=== PATIENT | male | born 1960 | race Caucasian/White ===

== ENCOUNTER 2019-05-14 20:01 | Inpatient (IN) | payer MEDICARE, OTHER, MEDICAID ==
[2019-05-14 20:49] LABS: WHITE BLOOD COUNT 14.4 10^3/ul (4.8-10.8)
[2019-05-14 20:49] LABS: ABNORMAL IP MESSAGE 1; HEMATOCRIT 17.1 % (42.0-52.0); MEAN CORPUSCULAR HEMOGLOBIN 28.9 pg (29.0-33.0); MEAN CORPUSCULAR HGB CONC 32.7 g/dl (32.0-37.0); MEAN CORPUSCULAR VOLUME 88.1 fl (82.0-101.0); MEAN PLATELET VOLUME 8.9 fl (7.4-10.4); PLATELET COUNT 221 10^3/UL (140-415); POSITIVE DIFF @See below; RED BLOOD COUNT 1.94 10^6/ul (4.70-6.10); RED CELL DISTRIBUTION WIDTH 16.6 % (11.5-14.5)
[2019-05-14 20:54] LABS: ADD MAN DIFF? YES; HEMOGLOBIN 5.6 g/dl (14.0-18.0)
[2019-05-14 21:03] LABS: ALANINE AMINOTRANSFERASE 31 IU/L (13-69); ALBUMIN 2.1 g/dl (3.3-4.9); ALKALINE PHOSPHATASE 52 IU/L (42-121); ANION GAP 5 (5-13); ASPARTATE AMINO TRANSFERASE 19 IU/L (15-46); BILIRUBIN,INDIRECT 0.2 mg/dl (0-1.1); BILIRUBIN,TOTAL 0.2 mg/dl (0.2-1.3); BLOOD UREA NITROGEN 55 mg/dl (7-20); CALCIUM 6.7 mg/dl (8.4-10.2); CARBON DIOXIDE 22 mmol/L (21-31); CHLORIDE 110 mmol/L (97-110); CREATININE 2.04 mg/dl (0.61-1.24); Estimated GFR 34 mL/min (>60); GLUCOSE 153 mg/dl (70-220); POTASSIUM 5.5 mmol/L (3.5-5.1); SODIUM 137 mmol/L (135-144)
[2019-05-14 21:15] LABS: B-TYPE NATRIURETIC PEPTIDE 3220 PG/ML (0-125); TROPONIN-I 0.037 ng/ml (0.000-0.120)
[2019-05-14 21:19] LABS: ANISOCYTOSIS 2+ (0-0); BAND NEUTROPHILS #M 0.4 10^3/ul (0.0-0.6); BAND NEUTROPHILS % (M) 3 % (0-4); LYMPHOCYTES % (M) 14 % (15-51); MICROCYTOSIS 2+ (0-0); MONOCYTE #M 0.5 10^3/ul (0.3-0.9); MONOCYTES % (M) 4 % (0-11); PLATELET ESTIMATE NORMAL; SEG NEUT #M 11.4 10^3/ul (1.6-7.5); SEGMENTED NEUTROPHILS (M) % 79 % (39-77); SMUDGE%M 3 % (0-0)
[2019-05-14] MEDS: ONDANSETRON 4 MG INJ IV (22:07)
[2019-05-14] MEDS ORDERED: ONDANSETRON 4 MG TAB PO (22:30)
[2019-05-14] MEDS ORDERED: HYDROCODONE/APAP (5/325) TAB PO (22:30)
[2019-05-14] MEDS ORDERED: BISACODYL (EC) 5 MG TAB PO (22:30)
[2019-05-14] MEDS ORDERED: DOCUSATE SODIUM 100 MG CAP PO (22:30)
[2019-05-14] MEDS ORDERED: hydrALAzine 20 MG INJ IV (22:30)
[2019-05-14] MEDS ORDERED: NACL 0.9% 3 ML SYG IV (22:30)
[2019-05-14] MEDS: FUROSEMIDE 40 MG INJ IV (22:52)
[2019-05-14] MEDS: ALBUTEROL 0.083% (NEB) 2.5 MG/3 ML AMP HHN (23:35)
[2019-05-14] MEDS: INSULIN REGULAR, HUMAN 100 UNIT/1 ML 3ML VIAL IVP (23:38)
[2019-05-14] MEDS: DEXTROSE 50% 50 ML SYRINGE IV (23:38)
[2019-05-14] MEDS: SODIUM POLYSTYRENE 15 GM KIT (POWDER + SORBITOL) PO (23:39)
[2019-05-15 04:30] LABS: SODIUM,URINE RANDOM 26 mmol/L (30-90)
[2019-05-15 04:30] LABS: ADD UMIC YES; UR ASCORBIC ACID NEGATIVE (NEGATIVE); UR BACTERIA FEW /HPF (NONE SEEN); UR BILIRUBIN (Dip) NEGATIVE (NEGATIVE); UR BLOOD (Dip) 1+ mg/dL (NEGATIVE); UR CLARITY CLOUDY (CLEAR); UR COLOR YELLOW (YELLOW); UR GLUCOSE (Dip) 1+ mg/dL (NEGATIVE); UR KETONES (Dip) NEGATIVE (NEGATIVE); UR LEUKOCYTE ESTERASE (Dip) NEGATIVE Leu/ul (NEGATIVE); UR MUCUS FEW /HPF (NONE SEEN); UR NITRITE (Dip) NEGATIVE (NEGATIVE); UR RBC 9 /HPF (0-5); UR SPECIFIC GRAVITY (Dip) 1.013 (1.003-1.030); UR SQUAMOUS EPITHELIAL CELL FEW /HPF (FEW); UR TOTAL PROTEIN (Dip) 2+ mg/dl (NEGATIVE); UR TRANSITIONAL EPI CELL FEW /HPF (NONE SEEN); UR UROBILINOGEN (Dip) NEGATIVE (NEGATIVE); UR WBC 3 /HPF (0-5)
[2019-05-15 04:39] LABS: CREATININE,URINE RANDOM 96.11 mg/dl (20-370)
[2019-05-15] MEDS: INSULIN ASPART [NOVOLOG] 3 ML PEN SC ×5 (05:28→20:27)
[2019-05-15] MEDS: ALBUMIN HUMAN 25% 100 ML IV ×3 (05:29→19:33)
[2019-05-15] MEDS: FAMOTIDINE IV 40 MG in SOD CHLORIDE 0.9% 250 ML IV (05:39)
[2019-05-15] MEDS: OCTREOTIDE 1 MG in DEXTROSE 5% 95 ML IV (05:39)
[2019-05-15 08:44] LABS: HAAIG REFLEX REFLEX FILED
[2019-05-15 08:48] LABS: ABNORMAL IP MESSAGE 1; ADD MAN DIFF? NO; BASOPHILS % 0.1 % (0.0-2.0); EOSINOPHILS # 0.1 10^3/ul (0.0-0.5); EOSINOPHILS % 0.3 % (0.0-7.0); HEMATOCRIT 19.1 % (42.0-52.0); LYMPHOCYTES % 26.3 % (15.0-51.0); MEAN PLATELET VOLUME 9.5 fl (7.4-10.4); MONOCYTE # 1.9 10^3/ul (0.3-0.9); MONOCYTES % 10.1 % (0.0-11.0); NEUTROPHIL # 11.6 10^3/ul (1.6-7.5); NEUTROPHILS % 60.9 % (39.0-77.0); NUCLEATED RED BLOOD CELLS% 0.2 /100WBC (0.0-0.0); PLATELET COUNT 164 10^3/UL (140-415); POSITIVE DIFF @See below; RED BLOOD COUNT 2.17 10^6/ul (4.70-6.10); RED CELL DISTRIBUTION WIDTH 16.1 % (11.5-14.5)
[2019-05-15 08:55] LABS: HEMOGLOBIN 6.3 g/dl (14.0-18.0)
[2019-05-15 09:09] LABS: HEMOGLOBIN A1C 5.7 % (0-5.9)
[2019-05-15 09:10] LABS: IRON 129 ug/dl (35-150)
[2019-05-15 09:12] LABS: ANION GAP 9 (5-13); BLOOD UREA NITROGEN 65 mg/dl (7-20); CALCIUM 6.3 mg/dl (8.4-10.2); CARBON DIOXIDE 21 mmol/L (21-31); CHLORIDE 110 mmol/L (97-110); CHOL/HDL RATIO 5.1 RATIO; CHOLESTEROL 174 mg/dl (100-200); CREATININE 2.51 mg/dl (0.61-1.24); Estimated GFR 27 mL/min (>60); GLUCOSE 93 mg/dl (70-220); HDL CHOLESTEROL 34 mg/dl (28-71); LDL CHOLESTEROL,CALCULATED 72 mg/dl; PHOSPHORUS 5.9 mg/dl (2.5-4.9); POTASSIUM 5.9 mmol/L (3.5-5.1); SODIUM 140 mmol/L (135-144); TRIGLYCERIDES 338 mg/dl (0-149)
[2019-05-15 09:12] LABS: MAGNESIUM 2.1 mg/dl (1.7-2.5)
[2019-05-15 09:13] LABS: INR 1.32; PROTIME 16.5 Sec (11.9-14.9); PT RATIO 1.3
[2019-05-15 09:14] LABS: PARTIAL THROMBOPLASTIN TIME 27.1 Sec (23.0-35.0)
[2019-05-15 09:20] LABS: % IRON SATURATION 77 % SAT (22-52); TOTAL IRON BINDING CAPACITY 168 ug/dl (241-421)
[2019-05-15] MEDS: LIDOCAINE 1% (MPF) 5 ML VIAL SC (10:30)
[2019-05-15] MEDS: METOLAZONE 5 MG TAB PO (10:36)
[2019-05-15] MEDS: ALBUTEROL 0.083% (NEB) 2.5 MG/3 ML AMP HHN (10:58)
[2019-05-15] MEDS: INSULIN REGULAR, HUMAN 100 UNIT/1 ML 3ML VIAL IVP (11:28)
[2019-05-15] MEDS: DEXTROSE 50% 50 ML SYRINGE IV (11:36)
[2019-05-15 11:42] LABS: COMPLEMENT C3 61 mg/dl (88-165); COMPLEMENT C4 23 mg/dl (14-44); HEPATITIS B CORE ANTIBODY NEGATIVE (NEGATIVE); HEPATITIS B SURFACE ANTIGEN NEGATIVE (NEGATIVE); HEPATITIS C VIRAL ANTIBODY NEGATIVE (NEGATIVE)
[2019-05-15 11:56] LABS: ADD UMIC YES; UR AMORPHOUS CRYSTAL FEW /HPF (NONE SEEN); UR ASCORBIC ACID NEGATIVE (NEGATIVE); UR BACTERIA FEW /HPF (NONE SEEN); UR BILIRUBIN (Dip) NEGATIVE (NEGATIVE); UR BLOOD (Dip) 1+ mg/dL (NEGATIVE); UR CLARITY CLOUDY (CLEAR); UR COLOR YELLOW (YELLOW); UR GLUCOSE (Dip) NEGATIVE (NEGATIVE); UR KETONES (Dip) NEGATIVE (NEGATIVE); UR LEUKOCYTE ESTERASE (Dip) TRACE Leu/ul (NEGATIVE); UR MUCUS FEW /HPF (NONE SEEN); UR NITRITE (Dip) NEGATIVE (NEGATIVE); UR RBC 4 /HPF (0-5); UR SPECIFIC GRAVITY (Dip) 1.014 (1.003-1.030); UR SQUAMOUS EPITHELIAL CELL FEW /HPF (FEW); UR TOTAL PROTEIN (Dip) 2+ mg/dl (NEGATIVE); UR UROBILINOGEN (Dip) NEGATIVE (NEGATIVE); UR WBC 11 /HPF (0-5)
[2019-05-15 12:14] LABS: CREATININE,URINE RANDOM 154.52 mg/dl (20-370)
[2019-05-15 12:24] LABS: SODIUM,URINE RANDOM < 13 mmol/L (30-90)
[2019-05-15 12:41] LABS: HEPATITIS B SURFACE ANTIBODY NEGATIVE (NEGATIVE)
[2019-05-15] MEDS: BUMETANIDE 6 MG in DEXTROSE 5% 36 ML IV (13:05)
[2019-05-15] MEDS: METOPROLOL 5 MG INJ IV ×2 (13:14→21:43)
[2019-05-15 14:39] LABS: ADD MAN DIFF? NO
[2019-05-15 14:41] LABS: BASOPHILS % 0.1 % (0.0-2.0); EOSINOPHILS # 0.1 10^3/ul (0.0-0.5); EOSINOPHILS % 0.5 % (0.0-7.0); HEMATOCRIT 23.7 % (42.0-52.0); HEMOGLOBIN 8.1 g/dl (14.0-18.0); LYMPHOCYTES # 4.5 10^3/ul (0.8-2.9); LYMPHOCYTES % 27.9 % (15.0-51.0); MEAN CORPUSCULAR HEMOGLOBIN 29.8 pg (29.0-33.0); MEAN CORPUSCULAR HGB CONC 34.2 g/dl (32.0-37.0); MEAN CORPUSCULAR VOLUME 87.1 fl (82.0-101.0); MEAN PLATELET VOLUME 10.5 fl (7.4-10.4); MONOCYTE # 1.3 10^3/ul (0.3-0.9); MONOCYTES % 8.2 % (0.0-11.0); NEUTROPHIL # 9.8 10^3/ul (1.6-7.5); NEUTROPHILS % 61.2 % (39.0-77.0); NUCLEATED RED BLOOD CELLS% 0.2 /100WBC (0.0-0.0); PLATELET COUNT 116 10^3/UL (140-415); RED BLOOD COUNT 2.72 10^6/ul (4.70-6.10); RED CELL DISTRIBUTION WIDTH 16.3 % (11.5-14.5)
[2019-05-15 14:58] LABS: ANION GAP 7 (5-13); BLOOD UREA NITROGEN 68 mg/dl (7-20); CALCIUM 6.6 mg/dl (8.4-10.2); CARBON DIOXIDE 22 mmol/L (21-31); CHLORIDE 109 mmol/L (97-110); CREATININE 2.64 mg/dl (0.61-1.24); Estimated GFR 25 mL/min (>60); GLUCOSE 86 mg/dl (70-220); POTASSIUM 5.8 mmol/L (3.5-5.1); SODIUM 138 mmol/L (135-144)
[2019-05-15 15:18] LABS: RHEUMATOID FACTOR NEGATIVE (NEGATIVE)
[2019-05-15 17:39] LABS: POTASSIUM 5.2 mmol/L (3.5-5.1)
[2019-05-15] MEDS: BUMETANIDE 25 MG in DEXTROSE 5% 150 ML IV (18:20)
[2019-05-15 19:16] LABS: PARATHYROID HORMONE 538.6 pg/ml (24.0-73.0)
[2019-05-15] MEDS: hydrALAzine 20 MG INJ IV ×2 (19:56→22:38)
[2019-05-15] MEDS: ATORVASTATIN 40 MG TAB PO (20:35)
[2019-05-15] MEDS: NITROGLYCERIN (SL) 0.4 MG TAB SL (20:46)
[2019-05-15] MEDS: ONDANSETRON 4 MG INJ IV (20:56)
[2019-05-15 21:27] LABS: CREATINE KINASE 54 IU/L (23-200)
[2019-05-15 21:40] LABS: CK INDEX 4.5; TROPONIN-I 0.077 ng/ml (0.000-0.120)
[2019-05-15 21:47] LABS: CK-MB 2.42 ng/ml (0.0-2.4)
[2019-05-15] MEDS ORDERED: hydrALAzine 20 MG INJ IV (23:00)
[2019-05-15 23:24] LABS: HEMATOCRIT 22.5 % (42.0-52.0); HEMOGLOBIN 7.6 g/dl (14.0-18.0)
[2019-05-16] MEDS: OCTREOTIDE 1 MG in DEXTROSE 5% 95 ML IV ×2 (00:16→17:14)
[2019-05-16] MEDS: INSULIN ASPART [NOVOLOG] 3 ML PEN SC ×6 (00:29→21:00)
[2019-05-16] MEDS ORDERED: ACCU-CHEK XX (02:00)
[2019-05-16] MEDS: PANTOPRAZOLE IV 80 MG in SOD CHLORIDE 0.9% 100 ML IVPB ×3 (03:06→22:55)
[2019-05-16 03:50] LABS: TROPONIN-I 0.316 ng/ml (0.000-0.120)
[2019-05-16 04:18] LABS: CK-MB 3.55 ng/ml (0.0-2.4)
[2019-05-16 04:57] LABS: PROTEIN, TOTAL 3.8 g/dL (6.1-8.1)
[2019-05-16 05:49] LABS: ADD MAN DIFF? NO
[2019-05-16 05:56] LABS: BASOPHILS % 0.1 % (0.0-2.0); EOSINOPHILS # 0.1 10^3/ul (0.0-0.5); EOSINOPHILS % 0.8 % (0.0-7.0); HEMATOCRIT 24.1 % (42.0-52.0); HEMOGLOBIN 8.1 g/dl (14.0-18.0); LYMPHOCYTES # 1.6 10^3/ul (0.8-2.9); LYMPHOCYTES % 12.1 % (15.0-51.0); MEAN CORPUSCULAR HEMOGLOBIN 29.7 pg (29.0-33.0); MEAN CORPUSCULAR HGB CONC 33.6 g/dl (32.0-37.0); MEAN CORPUSCULAR VOLUME 88.3 fl (82.0-101.0); MEAN PLATELET VOLUME 9.5 fl (7.4-10.4); MONOCYTE # 1.1 10^3/ul (0.3-0.9); NEUTROPHIL # 10.4 10^3/ul (1.6-7.5); NEUTROPHILS % 77.9 % (39.0-77.0); PLATELET COUNT 100 10^3/UL (140-415); RED BLOOD COUNT 2.73 10^6/ul (4.70-6.10); RED CELL DISTRIBUTION WIDTH 16.2 % (11.5-14.5)
[2019-05-16 05:56] LABS: WHITE BLOOD COUNT 13.3 10^3/ul (4.8-10.8)
[2019-05-16 06:16] LABS: ANION GAP 8 (5-13); BLOOD UREA NITROGEN 67 mg/dl (7-20); CALCIUM 7.4 mg/dl (8.4-10.2); CARBON DIOXIDE 26 mmol/L (21-31); CHLORIDE 105 mmol/L (97-110); CREATININE 2.72 mg/dl (0.61-1.24); Estimated GFR 24 mL/min (>60); GLUCOSE 107 mg/dl (70-220); POTASSIUM 4.8 mmol/L (3.5-5.1); SODIUM 139 mmol/L (135-144)
[2019-05-16 09:09] LABS: CREATINE KINASE 102 IU/L (23-200)
[2019-05-16 09:22] LABS: CK INDEX 11.5
[2019-05-16] MEDS: BUMETANIDE 6 MG in DEXTROSE 5% 36 ML IV (09:34)
[2019-05-16] MEDS: hydrALAzine 20 MG INJ IV (11:05)
[2019-05-16] MEDS: METOLAZONE 5 MG TAB PO (11:11)
[2019-05-16] MEDS: ACETAMINOPHEN 325 MG TAB PO (12:47)
[2019-05-16 12:52] LABS: ANA SCREEN NEGATIVE (NEGATIVE)
[2019-05-16] MEDS: METOPROLOL 5 MG INJ IV ×3 (12:57→21:28)
[2019-05-16 13:37] LABS: ANCA SCREEN NEGATIVE (NEGATIVE)
[2019-05-16 14:32] LABS: ANION GAP 4 (5-13); BLOOD UREA NITROGEN 67 mg/dl (7-20); CALCIUM 7.6 mg/dl (8.4-10.2); CARBON DIOXIDE 29 mmol/L (21-31); CHLORIDE 104 mmol/L (97-110); CREATININE 2.81 mg/dl (0.61-1.24); Estimated GFR 23 mL/min (>60); GLUCOSE 132 mg/dl (70-220); POTASSIUM 4.3 mmol/L (3.5-5.1); SODIUM 137 mmol/L (135-144)
[2019-05-16 15:11] LABS: MYELOPEROXIDASE ANTIBODY <1.0 AI; PROTEINASE-3 ANTIBODY <1.0 AI
[2019-05-16 15:18] LABS: ADD MAN DIFF? NO
[2019-05-16 15:19] LABS: ABNORMAL IP MESSAGE 1; BASOPHILS % 0.2 % (0.0-2.0); EOSINOPHILS # 0.1 10^3/ul (0.0-0.5); EOSINOPHILS % 0.6 % (0.0-7.0); HEMATOCRIT 23.2 % (42.0-52.0); HEMOGLOBIN 7.8 g/dl (14.0-18.0); LYMPHOCYTES # 1.2 10^3/ul (0.8-2.9); LYMPHOCYTES % 9.5 % (15.0-51.0); MEAN CORPUSCULAR HGB CONC 33.6 g/dl (32.0-37.0); MEAN CORPUSCULAR VOLUME 89.2 fl (82.0-101.0); MEAN PLATELET VOLUME 9.2 fl (7.4-10.4); MONOCYTE # 1.1 10^3/ul (0.3-0.9); MONOCYTES % 8.8 % (0.0-11.0); NEUTROPHIL # 9.9 10^3/ul (1.6-7.5); NEUTROPHILS % 79.9 % (39.0-77.0); PLATELET COUNT 93 10^3/UL (140-415); POSITIVE DIFF @See below; RED CELL DISTRIBUTION WIDTH 16.2 % (11.5-14.5)
[2019-05-16 15:19] LABS: WHITE BLOOD COUNT 12.4 10^3/ul (4.8-10.8)
[2019-05-16 15:34] LABS: IMMEDIATE SPIN CROSSMATCH 1 6
[2019-05-16 15:39] LABS: CREATINE KINASE 84 IU/L (23-200)
[2019-05-16 15:52] LABS: CK INDEX 10.6
[2019-05-16 15:55] LABS: CK-MB 8.92 ng/ml (0.0-2.4)
[2019-05-16 16:02] LABS: CREATININE, RANDOM URINE 154 mg/dL (20-320); MICROALBUMIN 97.6 mg/dL; MICROALBUMIN/CREATININE RATIO 634 (<30)
[2019-05-16 16:46] LABS: ALBUMIN 2.6 g/dL (3.8-4.8); ALPHA-1-GLOBULINS 0.3 g/dL (0.2-0.3); ALPHA-2-GLOBULINS 0.6 g/dL (0.5-0.9); BETA 2 GLOBULINS 0.1 g/dL (0.2-0.5); BETA GLOBULINS 0.2 g/dL (0.4-0.6); GAMMA GLOBULINS 0.1 g/dL (0.8-1.7)
[2019-05-16] MEDS: BUMETANIDE 25 MG in DEXTROSE 5% 150 ML IV (18:01)
[2019-05-16] MEDS: ATORVASTATIN 40 MG TAB PO (21:28)
[2019-05-16 21:31] LABS: HEMATOCRIT 26.5 % (42.0-52.0)
[2019-05-17] MEDS: INSULIN ASPART [NOVOLOG] 3 ML PEN SC ×6 (01:00→22:14)
[2019-05-17] MEDS: METOPROLOL 5 MG INJ IV ×3 (01:24→09:00)
[2019-05-17 05:59] LABS: ADD MAN DIFF? NO
[2019-05-17 06:05] LABS: WHITE BLOOD COUNT 11.6 10^3/ul (4.8-10.8)
[2019-05-17 06:05] LABS: ABNORMAL IP MESSAGE 1; BASOPHILS % 0.1 % (0.0-2.0); EOSINOPHILS # 0.1 10^3/ul (0.0-0.5); EOSINOPHILS % 0.9 % (0.0-7.0); HEMATOCRIT 26.6 % (42.0-52.0); HEMOGLOBIN 8.8 g/dl (14.0-18.0); LYMPHOCYTES # 1.1 10^3/ul (0.8-2.9); LYMPHOCYTES % 9.6 % (15.0-51.0); MEAN CORPUSCULAR HEMOGLOBIN 29.7 pg (29.0-33.0); MEAN CORPUSCULAR HGB CONC 33.1 g/dl (32.0-37.0); MEAN CORPUSCULAR VOLUME 89.9 fl (82.0-101.0); MEAN PLATELET VOLUME 9.4 fl (7.4-10.4); MONOCYTES % 8.5 % (0.0-11.0); NEUTROPHIL # 9.3 10^3/ul (1.6-7.5); NEUTROPHILS % 79.8 % (39.0-77.0); PLATELET COUNT 89 10^3/UL (140-415); POSITIVE DIFF @See below; RED BLOOD COUNT 2.96 10^6/ul (4.70-6.10); RED CELL DISTRIBUTION WIDTH 15.4 % (11.5-14.5)
[2019-05-17 06:39] LABS: ANION GAP 7 (5-13); BLOOD UREA NITROGEN 68 mg/dl (7-20); CALCIUM 7.6 mg/dl (8.4-10.2); CARBON DIOXIDE 31 mmol/L (21-31); CHLORIDE 98 mmol/L (97-110); CREATININE 2.77 mg/dl (0.61-1.24); Estimated GFR 24 mL/min (>60); GLUCOSE 120 mg/dl (70-220); MAGNESIUM 1.7 mg/dl (1.7-2.5); PHOSPHORUS 7.2 mg/dl (2.5-4.9); POTASSIUM 3.5 mmol/L (3.5-5.1); SODIUM 136 mmol/L (135-144)
[2019-05-17] MEDS: PANTOPRAZOLE IV 80 MG in SOD CHLORIDE 0.9% 100 ML IVPB ×3 (08:00→17:24)
[2019-05-17] MEDS: POTASSIUM CHLORIDE (SR) 20 MEQ TAB PO (09:42)
[2019-05-17] MEDS: predniSONE 20 MG TAB PO (09:42)
[2019-05-17] MEDS: SEVELAMER CARBONATE 800 MG TABLET PO ×2 (12:32→17:03)
[2019-05-17] MEDS: OCTREOTIDE 1 MG in DEXTROSE 5% 95 ML IV ×2 (12:54→16:00)
[2019-05-17 15:18] LABS: CREATININE, RANDOM URINE 18 mg/dL (20-320); PROTEIN/CREATININE RATIO 5222 mg/g creat (22-128)
[2019-05-17 16:00] LABS: ANTI-DNA (DOUBLE STRANDED) <95 U/mL (< 301)
[2019-05-17] MEDS: BUMETANIDE 25 MG in DEXTROSE 5% 150 ML IV (17:52)
[2019-05-17] MEDS: ATORVASTATIN 40 MG TAB PO (20:14)
[2019-05-17] MEDS: hydrALAzine 20 MG INJ IV (20:14)
[2019-05-18] MEDS: ACCUCHECK AT 2AM (Patients on SS coverage) XX (02:03)
[2019-05-18] MEDS: LABETALOL HCL 20MG INJ IV (02:26)
[2019-05-18] MEDS: PANTOPRAZOLE IV 80 MG in SOD CHLORIDE 0.9% 100 ML IVPB ×3 (04:13→23:46)
[2019-05-18 06:11] LABS: ADD MAN DIFF? NO
[2019-05-18 06:16] LABS: WHITE BLOOD COUNT 8.7 10^3/ul (4.8-10.8)
[2019-05-18 06:16] LABS: ABNORMAL IP MESSAGE 1; BASOPHILS % 0.1 % (0.0-2.0); HEMATOCRIT 26.4 % (42.0-52.0); LYMPHOCYTES # 0.7 10^3/ul (0.8-2.9); LYMPHOCYTES % 8.3 % (15.0-51.0); MEAN CORPUSCULAR HEMOGLOBIN 29.6 pg (29.0-33.0); MEAN CORPUSCULAR HGB CONC 34.1 g/dl (32.0-37.0); MEAN CORPUSCULAR VOLUME 86.8 fl (82.0-101.0); MONOCYTE # 0.7 10^3/ul (0.3-0.9); MONOCYTES % 8.3 % (0.0-11.0); NEUTROPHIL # 7.2 10^3/ul (1.6-7.5); NEUTROPHILS % 82.6 % (39.0-77.0); PLATELET COUNT 99 10^3/UL (140-415); POSITIVE DIFF @See below; RED BLOOD COUNT 3.04 10^6/ul (4.70-6.10); RED CELL DISTRIBUTION WIDTH 14.6 % (11.5-14.5)
[2019-05-18 06:52] LABS: ANION GAP 12 (5-13); BLOOD UREA NITROGEN 67 mg/dl (7-20); CALCIUM 7.7 mg/dl (8.4-10.2); CARBON DIOXIDE 36 mmol/L (21-31); CHLORIDE 90 mmol/L (97-110); Estimated GFR 25 mL/min (>60); GLUCOSE 154 mg/dl (70-220); MAGNESIUM 1.7 mg/dl (1.7-2.5); PHOSPHORUS 7.2 mg/dl (2.5-4.9); POTASSIUM 3.3 mmol/L (3.5-5.1); SODIUM 138 mmol/L (135-144)
[2019-05-18] MEDS ORDERED: INSULIN ASPART [NOVOLOG] 3 ML PEN SC (07:25)
[2019-05-18] MEDS: SEVELAMER CARBONATE 800 MG TABLET PO ×3 (08:02→17:20)
[2019-05-18] MEDS: predniSONE 20 MG TAB PO (08:02)
[2019-05-18] MEDS: Insulin NOVOLOG SS MILD Algorithm (SS with meals and bedtime) SC ×2 (08:38→12:40)
[2019-05-18] MEDS: OCTREOTIDE 1 MG in DEXTROSE 5% 95 ML IV (11:55)
[2019-05-18] MEDS: BUMETANIDE 25 MG in DEXTROSE 5% 150 ML IV (17:20)
[2019-05-18] MEDS: INSULIN ASPART [NOVOLOG] 3 ML PEN SC ×2 (17:30→22:16)
[2019-05-18] MEDS: POTASSIUM CHLORIDE 20 MEQ POWDER FOR ORAL SOLN PO (17:31)
[2019-05-18] MEDS: ATORVASTATIN 40 MG TAB PO (21:32)
[2019-05-18] MEDS: MAGNESIUM OXIDE 400 MG TAB PO (21:32)
[2019-05-19] MEDS: hydrALAzine 20 MG INJ IV ×3 (00:44→12:10)
[2019-05-19] MEDS: ACCUCHECK AT 2AM (Patients on SS coverage) XX (01:40)
[2019-05-19] MEDS: OCTREOTIDE 1 MG in DEXTROSE 5% 95 ML IV (07:51)
[2019-05-19] MEDS: SEVELAMER CARBONATE 800 MG TABLET PO ×3 (07:53→17:10)
[2019-05-19] MEDS: MAGNESIUM OXIDE 400 MG TAB PO ×2 (07:54→21:01)
[2019-05-19] MEDS: predniSONE 20 MG TAB PO (07:54)
[2019-05-19] MEDS: POTASSIUM CHLORIDE 20 MEQ POWDER FOR ORAL SOLN PO ×2 (07:54→21:06)
[2019-05-19] MEDS: INSULIN ASPART [NOVOLOG] 3 ML PEN SC ×4 (09:08→21:48)
[2019-05-19] MEDS: PANTOPRAZOLE IV 80 MG in SOD CHLORIDE 0.9% 100 ML IVPB ×2 (10:53→21:01)
[2019-05-19] MEDS: BUMETANIDE 6 MG in DEXTROSE 5% 36 ML IV (10:54)
[2019-05-19 12:30] LABS: ADD MAN DIFF? NO
[2019-05-19 12:35] LABS: WHITE BLOOD COUNT 10.9 10^3/ul (4.8-10.8)
[2019-05-19 12:35] LABS: BASOPHILS % 0.1 % (0.0-2.0); EOSINOPHILS # 0.1 10^3/ul (0.0-0.5); EOSINOPHILS % 0.6 % (0.0-7.0); HEMATOCRIT 27.8 % (42.0-52.0); HEMOGLOBIN 9.3 g/dl (14.0-18.0); LYMPHOCYTES # 0.8 10^3/ul (0.8-2.9); LYMPHOCYTES % 7.3 % (15.0-51.0); MEAN CORPUSCULAR HEMOGLOBIN 29.4 pg (29.0-33.0); MEAN CORPUSCULAR HGB CONC 33.5 g/dl (32.0-37.0); MEAN PLATELET VOLUME 9.9 fl (7.4-10.4); MONOCYTE # 0.9 10^3/ul (0.3-0.9); MONOCYTES % 8.2 % (0.0-11.0); NEUTROPHILS % 83.2 % (39.0-77.0); PLATELET COUNT 157 10^3/UL (140-415); RED BLOOD COUNT 3.16 10^6/ul (4.70-6.10); RED CELL DISTRIBUTION WIDTH 15.3 % (11.5-14.5)
[2019-05-19 12:59] LABS: ALANINE AMINOTRANSFERASE 47 IU/L (13-69); ALBUMIN 2.8 g/dl (3.3-4.9); ALBUMIN/GLOBULIN RATIO 1.21; ALKALINE PHOSPHATASE 36 IU/L (42-121); ANION GAP 8 (5-13); ASPARTATE AMINO TRANSFERASE 18 IU/L (15-46); BILIRUBIN,INDIRECT 0.3 mg/dl (0-1.1); BILIRUBIN,TOTAL 0.3 mg/dl (0.2-1.3); BLOOD UREA NITROGEN 75 mg/dl (7-20); CALCIUM 7.3 mg/dl (8.4-10.2); CHLORIDE 85 mmol/L (97-110); CREATININE 2.33 mg/dl (0.61-1.24); Estimated GFR 29 mL/min (>60); GLUCOSE 147 mg/dl (70-220); POTASSIUM 3.4 mmol/L (3.5-5.1); SODIUM 133 mmol/L (135-144); TOTAL PROTEIN 5.1 g/dl (6.1-8.1)
[2019-05-19] MEDS: ISOSORBIDE MONONITRATE(SR)30 MG TAB PO (15:01)
[2019-05-19] MEDS: ATORVASTATIN 40 MG TAB PO (21:01)
[2019-05-20] MEDS: hydrALAzine 20 MG INJ IV (00:15)
[2019-05-20] MEDS: ACCUCHECK AT 2AM (Patients on SS coverage) XX (02:28)
[2019-05-20] MEDS: OCTREOTIDE 1 MG in DEXTROSE 5% 95 ML IV (03:04)
[2019-05-20] MEDS: PANTOPRAZOLE IV 80 MG in SOD CHLORIDE 0.9% 100 ML IVPB ×2 (05:41→13:55)
[2019-05-20 06:07] LABS: ADD MAN DIFF? NO
[2019-05-20 06:14] LABS: EOSINOPHILS % 0.1 % (0.0-7.0); HEMOGLOBIN 9.2 g/dl (14.0-18.0); LYMPHOCYTES # 1.4 10^3/ul (0.8-2.9); MEAN CORPUSCULAR HEMOGLOBIN 29.2 pg (29.0-33.0); MEAN CORPUSCULAR HGB CONC 32.9 g/dl (32.0-37.0); MEAN CORPUSCULAR VOLUME 88.9 fl (82.0-101.0); MEAN PLATELET VOLUME 9.7 fl (7.4-10.4); MONOCYTE # 1.3 10^3/ul (0.3-0.9); MONOCYTES % 11.7 % (0.0-11.0); NEUTROPHILS % 74.7 % (39.0-77.0); PLATELET COUNT 175 10^3/UL (140-415); RED BLOOD COUNT 3.15 10^6/ul (4.70-6.10)
[2019-05-20 06:14] LABS: WHITE BLOOD COUNT 10.7 10^3/ul (4.8-10.8)
[2019-05-20 06:47] LABS: ALANINE AMINOTRANSFERASE 42 IU/L (13-69); ALBUMIN 2.7 g/dl (3.3-4.9); ALBUMIN/GLOBULIN RATIO 1.22; ALKALINE PHOSPHATASE 40 IU/L (42-121); ASPARTATE AMINO TRANSFERASE 20 IU/L (15-46); BILIRUBIN,INDIRECT 0.5 mg/dl (0-1.1); BILIRUBIN,TOTAL 0.5 mg/dl (0.2-1.3); BLOOD UREA NITROGEN 81 mg/dl (7-20); CALCIUM 7.1 mg/dl (8.4-10.2); CHLORIDE 89 mmol/L (97-110); CREATININE 2.35 mg/dl (0.61-1.24); Estimated GFR 29 mL/min (>60); GLUCOSE 136 mg/dl (70-220); POTASSIUM 3.5 mmol/L (3.5-5.1); SODIUM 136 mmol/L (135-144); TOTAL PROTEIN 4.9 g/dl (6.1-8.1)
[2019-05-20 06:55] LABS: ANION GAP 10 (5-13); CARBON DIOXIDE 37 mmol/L (21-31)
[2019-05-20 07:22] LABS: PHOSPHORUS 4.9 mg/dl (2.5-4.9)
[2019-05-20] MEDS: INSULIN ASPART [NOVOLOG] 3 ML PEN SC ×4 (07:47→21:25)
[2019-05-20] MEDS: predniSONE 20 MG TAB PO (08:36)
[2019-05-20] MEDS: SEVELAMER CARBONATE 800 MG TABLET PO ×3 (08:36→17:51)
[2019-05-20] MEDS: ISOSORBIDE MONONITRATE(SR)30 MG TAB PO (08:36)
[2019-05-20] MEDS: POTASSIUM CHLORIDE 20 MEQ POWDER FOR ORAL SOLN PO ×2 (08:37→21:14)
[2019-05-20] MEDS: MAGNESIUM OXIDE 400 MG TAB PO ×2 (08:37→21:13)
[2019-05-20] MEDS: POTASSIUM CHLORIDE (SR) 20 MEQ TAB PO (08:37)
[2019-05-20] MEDS: ACETAZOLAMIDE 500 MG INJ IV (09:52)
[2019-05-20 15:41] LABS: % CRYOCRIT NONE DETECTED (NONE DETECTED)
[2019-05-20] MEDS: ASPIRIN (EC) 81 MG TAB PO (17:51)
[2019-05-20] MEDS: CLOPIDOGREL 75 MG TAB PO (17:51)
[2019-05-20] MEDS: ATORVASTATIN 40 MG TAB PO (21:13)
[2019-05-21] MEDS: PANTOPRAZOLE IV 80 MG in SOD CHLORIDE 0.9% 100 ML IVPB ×3 (01:07→22:35)
[2019-05-21] MEDS: OCTREOTIDE 1 MG in DEXTROSE 5% 95 ML IV ×2 (01:07→20:00)
[2019-05-21] MEDS: ACCUCHECK AT 2AM (Patients on SS coverage) XX (01:10)
[2019-05-21] MEDS: LABETALOL HCL 20MG INJ IV (03:31)
[2019-05-21] MEDS: PANTOPRAZOLE (EC) 40 MG TAB PO (05:28)
[2019-05-21] MEDS: INSULIN ASPART [NOVOLOG] 3 ML PEN SC ×4 (07:37→21:35)
[2019-05-21] MEDS: SEVELAMER CARBONATE 800 MG TABLET PO ×3 (07:40→17:20)
[2019-05-21 07:48] LABS: ADD MAN DIFF? NO
[2019-05-21 07:57] LABS: BASOPHILS % 0.1 % (0.0-2.0); EOSINOPHILS % 0.1 % (0.0-7.0); HEMATOCRIT 25.8 % (42.0-52.0); HEMOGLOBIN 8.2 g/dl (14.0-18.0); LYMPHOCYTES # 1.3 10^3/ul (0.8-2.9); LYMPHOCYTES % 11.8 % (15.0-51.0); MEAN CORPUSCULAR HEMOGLOBIN 29.2 pg (29.0-33.0); MEAN CORPUSCULAR HGB CONC 31.8 g/dl (32.0-37.0); MEAN CORPUSCULAR VOLUME 91.8 fl (82.0-101.0); MEAN PLATELET VOLUME 9.8 fl (7.4-10.4); MONOCYTE # 1.2 10^3/ul (0.3-0.9); MONOCYTES % 10.7 % (0.0-11.0); NEUTROPHIL # 8.4 10^3/ul (1.6-7.5); NEUTROPHILS % 76.8 % (39.0-77.0); PLATELET COUNT 162 10^3/UL (140-415); RED BLOOD COUNT 2.81 10^6/ul (4.70-6.10); RED CELL DISTRIBUTION WIDTH 14.6 % (11.5-14.5)
[2019-05-21 08:17] LABS: ANION GAP 9 (5-13); BLOOD UREA NITROGEN 72 mg/dl (7-20); CALCIUM 7.2 mg/dl (8.4-10.2); CARBON DIOXIDE 33 mmol/L (21-31); CHLORIDE 95 mmol/L (97-110); CREATININE 2.44 mg/dl (0.61-1.24); Estimated GFR 27 mL/min (>60); GLUCOSE 140 mg/dl (70-220); MAGNESIUM 2.3 mg/dl (1.7-2.5); PHOSPHORUS 3.7 mg/dl (2.5-4.9); POTASSIUM 4.1 mmol/L (3.5-5.1); SODIUM 137 mmol/L (135-144)
[2019-05-21] MEDS: POTASSIUM CHLORIDE 20 MEQ POWDER FOR ORAL SOLN PO ×2 (08:42→20:44)
[2019-05-21] MEDS: CLOPIDOGREL 75 MG TAB PO (08:43)
[2019-05-21] MEDS: ASPIRIN (EC) 81 MG TAB PO (08:43)
[2019-05-21] MEDS: ISOSORBIDE MONONITRATE(SR)30 MG TAB PO ×2 (08:43→20:43)
[2019-05-21] MEDS: MAGNESIUM OXIDE 400 MG TAB PO ×2 (08:43→20:42)
[2019-05-21] MEDS: predniSONE 20 MG TAB PO (08:44)
[2019-05-21] MEDS: BUMETANIDE 1 MG TAB PO ×2 (09:00→17:20)
[2019-05-21 16:15] LABS: WHITE BLOOD COUNT 10.7 10^3/ul (4.8-10.8)
[2019-05-21 16:15] LABS: ABNORMAL IP MESSAGE 1; ADD MAN DIFF? NO; HEMATOCRIT 26.2 % (42.0-52.0); HEMOGLOBIN 8.5 g/dl (14.0-18.0); LYMPHOCYTES # 0.5 10^3/ul (0.8-2.9); LYMPHOCYTES % 4.3 % (15.0-51.0); MEAN CORPUSCULAR HEMOGLOBIN 29.7 pg (29.0-33.0); MEAN CORPUSCULAR HGB CONC 32.4 g/dl (32.0-37.0); MEAN CORPUSCULAR VOLUME 91.6 fl (82.0-101.0); MEAN PLATELET VOLUME 9.4 fl (7.4-10.4); MONOCYTE # 0.3 10^3/ul (0.3-0.9); NEUTROPHIL # 9.9 10^3/ul (1.6-7.5); PLATELET COUNT 188 10^3/UL (140-415); POSITIVE DIFF @See below; RED BLOOD COUNT 2.86 10^6/ul (4.70-6.10); RED CELL DISTRIBUTION WIDTH 14.6 % (11.5-14.5)
[2019-05-21] MEDS: ATORVASTATIN 40 MG TAB PO (20:44)
[2019-05-22] MEDS: ACCUCHECK AT 2AM (Patients on SS coverage) XX (02:00)
[2019-05-22] MEDS: OCTREOTIDE 1 MG in DEXTROSE 5% 95 ML IV (04:13)
[2019-05-22] MEDS: BUMETANIDE 1 MG TAB PO (06:00)
[2019-05-22 06:43] LABS: ANION GAP 7 (5-13); BLOOD UREA NITROGEN 67 mg/dl (7-20); CALCIUM 7.2 mg/dl (8.4-10.2); CARBON DIOXIDE 33 mmol/L (21-31); CHLORIDE 97 mmol/L (97-110); CREATININE 2.38 mg/dl (0.61-1.24); Estimated GFR 28 mL/min (>60); GLUCOSE 142 mg/dl (70-220); MAGNESIUM 2.4 mg/dl (1.7-2.5); PHOSPHORUS 3.4 mg/dl (2.5-4.9); POTASSIUM 4.7 mmol/L (3.5-5.1); SODIUM 137 mmol/L (135-144)
[2019-05-22] MEDS: INSULIN ASPART [NOVOLOG] 3 ML PEN SC ×2 (07:55→11:50)
[2019-05-22] MEDS: PANTOPRAZOLE IV 80 MG in SOD CHLORIDE 0.9% 100 ML IVPB (08:00)
[2019-05-22] MEDS: MAGNESIUM OXIDE 400 MG TAB PO (08:57)
[2019-05-22] MEDS: CLOPIDOGREL 75 MG TAB PO (08:57)
[2019-05-22] MEDS: predniSONE 20 MG TAB PO (08:57)
[2019-05-22] MEDS: ASPIRIN (EC) 81 MG TAB PO (08:57)
[2019-05-22] MEDS: POTASSIUM CHLORIDE 20 MEQ POWDER FOR ORAL SOLN PO (08:57)
[2019-05-22] MEDS: SEVELAMER CARBONATE 800 MG TABLET PO ×2 (08:57→11:20)
[2019-05-22] MEDS: ISOSORBIDE MONONITRATE(SR)30 MG TAB PO (08:58)
[2019-05-22 11:25] LABS: ADD MAN DIFF? NO; BASOPHILS % 0.1 % (0.0-2.0); EOSINOPHILS # 0.1 10^3/ul (0.0-0.5); EOSINOPHILS % 0.5 % (0.0-7.0); HEMATOCRIT 25.9 % (42.0-52.0); HEMOGLOBIN 8.6 g/dl (14.0-18.0); LYMPHOCYTES # 1.1 10^3/ul (0.8-2.9); LYMPHOCYTES % 8.4 % (15.0-51.0); MEAN CORPUSCULAR HEMOGLOBIN 29.3 pg (29.0-33.0); MEAN CORPUSCULAR HGB CONC 33.2 g/dl (32.0-37.0); MEAN CORPUSCULAR VOLUME 88.1 fl (82.0-101.0); MEAN PLATELET VOLUME 9.5 fl (7.4-10.4); MONOCYTE # 1.3 10^3/ul (0.3-0.9); MONOCYTES % 9.9 % (0.0-11.0); NEUTROPHIL # 10.2 10^3/ul (1.6-7.5); NEUTROPHILS % 80.5 % (39.0-77.0); PLATELET COUNT 206 10^3/UL (140-415); RED BLOOD COUNT 2.94 10^6/ul (4.70-6.10); RED CELL DISTRIBUTION WIDTH 14.6 % (11.5-14.5)
[2019-05-22 11:25] LABS: WHITE BLOOD COUNT 12.7 10^3/ul (4.8-10.8)
== END 2019-05-22 14:56 | disposition home or self-care (01) | DRG 377 ==
LOC: TEL 22:13 → E/R 20:01 → ICU 05-15 02:35
PROC: 30233N1 Transfusion of Nonautologous Red Blood Cells into Peripheral Vein, Percutaneous Approach (ICD-10-PCS; 2019-05-15)
PROC: 02HV33Z Insertion of Infusion Device into Superior Vena Cava, Percutaneous Approach (ICD-10-PCS; 2019-05-15)
PROC: B548ZZA Ultrasonography of Superior Vena Cava, Guidance (ICD-10-PCS; 2019-05-15)
PROC: 30233N1 Transfusion of Nonautologous Red Blood Cells into Peripheral Vein, Percutaneous Approach (ICD-10-PCS; principal; 2019-05-16)
DX: K92.2 Gastrointestinal hemorrhage, unspecified (principal); I21.A1 Myocardial infarction type 2; N17.9 Acute kidney failure, unspecified; D62 Acute posthemorrhagic anemia; I13.0 Hypertensive heart and chronic kidney disease with heart failure and stage 1 through stage 4 chronic kidney disease, or unspecified chronic kidney disease; R65.10 Systemic inflammatory response syndrome (SIRS) of non-infectious origin without acute organ dysfunction; E87.5 Hyperkalemia; E66.01 Morbid (severe) obesity due to excess calories; I50.9 Heart failure, unspecified; E88.09 Other disorders of plasma-protein metabolism, not elsewhere classified; K74.60 Unspecified cirrhosis of liver; N18.9 Chronic kidney disease, unspecified; Z68.34 Body mass index [BMI] 34.0-34.9, adult; F17.210 Nicotine dependence, cigarettes, uncomplicated; D64.9 Anemia, unspecified; I25.10 Atherosclerotic heart disease of native coronary artery without angina pectoris; N14.1 Nephropathy induced by other drugs, medicaments and biological substances; E78.5 Hyperlipidemia, unspecified; E02 Subclinical iodine-deficiency hypothyroidism; E55.9 Vitamin D deficiency, unspecified; J44.9 Chronic obstructive pulmonary disease, unspecified; R73.03 Prediabetes; T50.8X5D Adverse effect of diagnostic agents, subsequent encounter; Z79.82 Long term (current) use of aspirin; Z79.02 Long term (current) use of antithrombotics/antiplatelets; Z95.5 Presence of coronary angioplasty implant and graft; Z91.19 Patient's noncompliance with other medical treatment and regimen
CPT/HCPCS: 36415; 36430; 36569; 71045; 71250; 74018; 74176; 76775; 76937; 80048; 80053; 80061; 81001; 81003; 82043; 82306; 82550; 82553; 82570; 82595; 82652; 82728; 82962; 83036; 83540; 83735; 83880; 83970; 84100; 84132; 84155; 84156; 84165; 84166; 84300; 84443; 84484; 85014; 85018; 85025; 85610; 85730; 86021; 86038; 86160; 86226; 86320; 86325; 86430; 86644; 86704; 86706; 86708; 86709; 86803; 86850; 86900; 86901; 86920; 87081; 87340; 93005; 93306; 93970; 94664; 96374; 99285-25